=== PATIENT | male | born 1945 | race Caucasian/White ===

== ENCOUNTER 2017-08-26 09:14 | Day surgery (SDC) | payer MEDICARE, OTHER ==
[~2017-08-26 09:14] MED LIST: ALPRAZolam TAB* 0.25 MG PO PRN; Acetaminophen TAB* 325 MG PO PRN; Buffered Lidocaine 0.9% SYRIN* 5 ML/SYR SYRINGE INTRADERM ONE
[2017-08-26] MEDS ORDERED: Midazolam* 1 MG/ML 5 ML VIAL (5 MG) ONE (10:28)
[2017-08-26 11:59] VITALS: BP 131/76
[2017-08-26] MEDS ORDERED: Ketorolac 0.5% OPHTH (NF) 0.5 % 5 ML BTL ONE (12:22)
[2017-08-26] MEDS ORDERED: acetaZOLAMIDE TAB* 250 MG ONE (12:22)
[2017-08-26] MEDS ORDERED: Lidocaine 1%* 5 ML VIAL ONE (12:22)
[2017-08-26] MEDS ORDERED: Proparacaine 0.5% OPHTH.SOL* 15 ML BTL ONE (12:22)
[2017-08-26] MEDS ORDERED: Neomycin/Polymy/Dex OPTH.SUSP* MAXITROL 0.1% 5 ML ONE (12:22)
[2017-08-26] MEDS ORDERED: Lidocaine 2% EPI 1:200000 MPF*10-20 ML VIAL ONE (12:22)
[2017-08-26] MEDS ORDERED: Povidone Iodine 5% OPTH* 30 ML BTL ONE (12:22)
[2017-08-26] MEDS ORDERED: Cyclopentolate 1% OPTH.SOL* 2 ML BTL ONE (12:22)
[2017-08-26] MEDS ORDERED: Phenylephrine 2.5% OPTH.SOL* 2 ML BTL ONE (12:22)
--- NOTE | 2017-08-27 01:19 | OP ---
DATE OF OPERATION: 08/26/17 - [facility] DATE OF : 41 SURGEON: Markus Yadav M.D. PREOPERATIVE DIAGNOSIS: Cataract, right eye. POSTOPERATIVE DIAGNOSIS: Cataract, right eye. OPERATIVE PROCEDURE: Extracapsular cataract extraction with intraocular lens implant right eye. DESCRIPTION OF PROCEDURE: The patient was brought to the operating room after being given 1/2% Alcaine with epinephrine drops in the preoperative area. The eye was prepped and draped in the usual sterile fashion. Sterile drape and eyelid speculum were placed. Again, topical 1/2% Alcaine with epinephrine was given. A paracentesis incision was made at the 9 o'clock position with the No.75 blade. Clear cornea incision 2.2 x 2.2-mm was created at the 12 o'clock position starting at the anterior limbus using the 2.2-mm keratome. The anterior chamber was irrigated with 0.4 mL of 1% non-preservative intracameral lidocaine and filled with DisCoVisc. A capsulorrhexis was completed using the cystotome and the Utrata forceps. Hydrodissection was performed with balanced salt solution. The lens nucleus was removed with the Phacoemulsification handpiece without incident. Cortex was removed with the irrigation-aspiration handpiece. The capsular bag was re-inflated using DisCoVisc and an [id number] implant was inserted with the shooter. The irrigation-aspiration handpiece was used to remove all residual DisCoVisc. The eye was refilled with balanced salt solution and the wound checked and found to be watertight. Topical Maxitrol drops were given. [id number]/[facility] #: [id number] [facility]
== END 2017-08-26 11:50 | disposition home or self-care (01) ==
LOC: OREAST 09:14
PROVIDERS: ATTEND Specialist
DX: H25.811 Combined forms of age-related cataract, right eye (principal); H34.8312 Tributary (branch) retinal vein occlusion, right eye, stable; Z87.891 Personal history of nicotine dependence; I48.91 Unspecified atrial fibrillation; I10 Essential (primary) hypertension; F41.9 Anxiety disorder, unspecified; E78.5 Hyperlipidemia, unspecified; Z79.01 Long term (current) use of anticoagulants
CPT/HCPCS: A9270-GY; J2250; V2632

== ENCOUNTER 2017-09-02 10:57 | Day surgery (SDC) | payer MEDICARE, OTHER ==
[~2017-09-02 10:57] MED LIST changes: -ALPRAZolam TAB* 0.25 MG PO PRN
[2017-09-02] MEDS ORDERED: Midazolam* 1 MG/ML 5 ML VIAL (5 MG) ONE (13:42)
[2017-09-02 14:36] VITALS: BP 155/80
[2017-09-02] MEDS ORDERED: Povidone Iodine 5% OPTH* 30 ML BTL ONE (15:11)
[2017-09-02] MEDS ORDERED: Ketorolac 0.5% OPHTH (NF) 0.5 % 5 ML BTL ONE (15:11)
[2017-09-02] MEDS ORDERED: acetaZOLAMIDE TAB* 250 MG ONE (15:11)
[2017-09-02] MEDS ORDERED: Lidocaine 1%* 5 ML VIAL ONE (15:11)
[2017-09-02] MEDS ORDERED: Cyclopentolate 1% OPTH.SOL* 2 ML BTL ONE (15:11)
[2017-09-02] MEDS ORDERED: Phenylephrine OPHTH SOL 2.5%* 2 ML ONE (15:11)
[2017-09-02] MEDS ORDERED: Neomycin/Polymy/Dex OPTH.SUSP* MAXITROL 0.1% 5 ML ONE (15:11)
[2017-09-02] MEDS ORDERED: Lidocaine 2% EPI 1:200000 MPF*10-20 ML VIAL ONE (15:11)
[2017-09-02] MEDS ORDERED: Proparacaine 0.5% OPHTH.SOL* 15 ML BTL ONE (15:12)
--- NOTE | 2017-09-03 06:31 | OP ---
DATE OF OPERATION: 09/02/17 - [facility] DATE OF : 41 SURGEON: Markus Yadav M.D. PREOPERATIVE DIAGNOSIS: Cataract, left. POSTOPERATIVE DIAGNOSIS: Cataract, left. OPERATIVE PROCEDURE: Extracapsular cataract extraction with intraocular lens implant left eye. DESCRIPTION OF PROCEDURE: The patient was brought to the operating room after being given 1/2% Alcaine with epinephrine drops in the preoperative area. The eye was prepped and draped in the usual sterile fashion. Sterile drape and eyelid speculum were placed. Again, topical 1/2% Alcaine with epinephrine was given. A paracentesis incision was made at the 3 o'clock position with the No.75 blade. Clear cornea incision 2.2 x 2.2-mm was created at the 6 o'clock position starting at the anterior limbus using the 2.2-mm keratome. The anterior chamber was irrigated with 0.4 mL of 1% non-preservative intracameral lidocaine and filled with DisCoVisc. A capsulorrhexis was completed using the cystotome and the Utrata forceps. Hydrodissection was performed with balanced salt solution. The lens nucleus was removed with the Phacoemulsification handpiece without incident. Cortex was removed with the irrigation-aspiration handpiece. The capsular bag was re-inflated using DisCoVisc and an [id number] implant was inserted with the shooter. The irrigation-aspiration handpiece was used to remove all residual DisCoVisc. The eye was refilled with balanced salt solution and the wound checked and found to be watertight. Topical Maxitrol drops were given. [id number]/[facility] #: [id number] [facility]
== END 2018-05-06 16:28 | disposition home or self-care (01) ==
LOC: OREAST 10:57
PROVIDERS: ATTEND Specialist
DX: H25.812 Combined forms of age-related cataract, left eye (principal); H34.8312 Tributary (branch) retinal vein occlusion, right eye, stable; I10 Essential (primary) hypertension; E78.00 Pure hypercholesterolemia, unspecified; K21.9 Gastro-esophageal reflux disease without esophagitis; I48.91 Unspecified atrial fibrillation; Z79.01 Long term (current) use of anticoagulants; Z87.891 Personal history of nicotine dependence; F41.9 Anxiety disorder, unspecified; Z79.899 Other long term (current) drug therapy
CPT/HCPCS: A9270-GY; J2250; V2632

== ENCOUNTER 2019-04-12 10:50 | Day surgery (SDC) | payer MEDICARE, OTHER ==
--- NOTE | 2019-04-06 09:27 | HP ---
PREOPERATIVE HISTORY AND PHYSICAL: DATE OF SURGERY/ADMISSION: 04/12/19 [facility] ATTENDING SURGEON: Latoya Wayne MD * (DICTATED BY HUSSEIN COLLAZO) PROCEDURE: Left wrist carpal tunnel release. DATE OF OFFICE VISIT/ENCOUNTER: 03/23/19 HISTORY OF PRESENT ILLNESS: This is a 73-year-old male who has had symptoms of numbness and tingling and pain in his left hand since January 2018. He denies any acute injury, but symptoms started after he had been doing some shoveling and using a snowblower. He has symptoms in his thumb, index and middle fingers and pain in his arm. He received a cortisone injection into the carpal tunnel, and for a time, that worked quite well. Unfortunately, the symptoms returned. He has now decided to pursue more definitive treatment in the form of a carpal tunnel release on the left. The patient has atrial fibrillation. He is on Xarelto. He will continue on that during the perioperative period. PAST MEDICAL HISTORY: 1. Atrial fibrillation. 2. Hypertension. 3. Hyperlipidemia. 4. GERD. 5. Anxiety/depression. PAST SURGICAL HISTORY: 1. Bilateral cataract removal. 2. Low back surgery. 3. Right shoulder rotator cuff repair. CURRENT MEDICATIONS: 1. Alprazolam 0.25 mg daily. 2. Amlodipine besylate 2.5 mg daily. 3. Diovan 160 mg daily. 4. Lipitor 40 mg daily. 5. Multivitamin daily. 6. Paxil 20 mg daily. 7. Potassium chloride 1 tab daily. 8. Prilosec 40 mg daily. 9. Toprol XL 100 mg daily. 10. Xarelto 20 mg daily. ALLERGIES: CODEINE causes nausea. FAMILY MEDICAL HISTORY: Noncontributory. SOCIAL HISTORY: The patient is retired. He is a former smoker. He quit at age 24. He denies recreational drug use. He drinks alcohol on occasion. REVIEW OF SYSTEMS: Negative for general, cephalic, cardiovascular, respiratory , GI/, other musculoskeletal, integumentary, endocrine, neurologic and hematologic symptoms, infectious disease, negative for MRSA, hepatitis C, HIV. PHYSICAL EXAMINATION GENERAL: Well-developed, well-nourished, 73-year-old male in on acute distress. VITAL SIGNS: Height 5 feet 6 inches, weight 160 pounds, pulse rate 76, blood pressure 144/88. HEENT: Normocephalic, atraumatic. Pupils are equal, reactive to light and accommodation. Extraocular movements are intact. NECK: Supple. No palpable lymph nodes. Throat is clear. PULMONARY: Lungs are clear to auscultation bilaterally. No wheezes, rales or rhonchi. CARDIOVASCULAR: Irregular rate and rhythm. S1, S2. No murmurs, rubs or gallops. ABDOMEN: Positive bowel sounds, soft, nontender. MUSCULOSKELETAL: On exam of his left hand and wrist, there is no visible muscle wasting, but he has weakness with thumb abduction. Positive Tinel's sign at the median nerve, negative at the elbow; also positive median nerve compression test and Phalen's test. Sensation is intact to light touch throughout the hand. NEUROLOGIC: Alert and oriented x3. Cranial nerves II through XII are intact. IMPRESSION: Left carpal tunnel syndrome. PLAN: The patient is scheduled to undergo left wrist carpal tunnel release with Dr. Wayne on 04/12/19. He will return to the office 10 days postop for followup and suture removal. A prescription for [place] was e-scribed to the patient's pharmacy for postoperative pain management. HUSSEIN COLLAZO [id number]/[facility] #: [id number] JUAN PABLO
[~2019-04-12 10:50] MED LIST changes: -Buffered Lidocaine 0.9% SYRIN* 5 ML/SYR SYRINGE INTRADERM ONE; +Buffered Lidocaine 1% SYRIN* 1 ML/SYRINGE INTRADERM ONE; +Lactated Ringers 1000 ML Bag* 1,000 ML IV SCH
[2019-04-12] MEDS ORDERED: Propofol* 10 MG/ML 20 ML BTL ONE (12:13)
[2019-04-12] MEDS ORDERED: fentaNYL* 50 MCG/ML 2 ML VIAL (100 MCG VIAL) ONE (12:13)
[2019-04-12] MEDS ORDERED: Lidocaine 2% PF * 5 ML VIAL ONE (12:14)
[2019-04-12] MEDS ORDERED: Lidocaine 1% INJ* 10 MG/ML 30 ML SDV ONE (12:26)
[2019-04-12] MEDS ORDERED: Midazolam* 1 MG/ML 2 ML VIAL (2 MG) ONE (13:12)
[2019-04-12 13:44] VITALS: BP 123/62
--- NOTE | 2019-04-12 22:37 | OP ---
DATE OF OPERATION: 04/12/19 [facility] DATE OF : 41 SURGEON: Latoya Wayne MD KEYBOARDING TEACHER: HUSSEIN Hooper ANESTHESIA: Local MAC. PRE-OP DIAGNOSIS: Left carpal tunnel syndrome. POST-OP DIAGNOSIS: Left carpal tunnel syndrome. OPERATIVE PROCEDURE: Left carpal tunnel release. ESTIMATED BLOOD LOSS: Zero. TOURNIQUET TIME: Approximately 10 minutes. INDICATIONS FOR PROCEDURE: Robel is a 73-year-old man who has numbness and tingling in the median nerve distribution of his left hand. He presents for left carpal tunnel release. DESCRIPTION OF PROCEDURE: The patient was brought to the operating room, was given a sedation anesthetic and a local infiltration of 10 cc of 1% plain lidocaine in the palm of his left hand. The skin of his left hand and forearm was prepped and draped in the usual sterile fashion. The hand and forearm were exsanguinated and the tourniquet elevated to 250 mmHg. A longitudinal incision was made in the palm in line with the ring finger and we dissected through the subcutaneous tissue down to the transverse carpal ligament. The ligament was divided sharply with a knife and then more proximally with the scissors. The nerve was dissected free from the surrounding tissue and there was an area of moderate compression at the mid portion of the ligament. The wound was irrigated and the skin edges reapproximated with 4- 0 nylon suture. The wound was dressed with Xeroform, 4x4, Webril, and an Gold wrap. The patient tolerated the procedure well and was brought to the recovery room in good condition. [id number]/[facility] #: [id number] [facility]
== END 2019-04-12 13:37 | disposition home or self-care (01) ==
LOC: OREAST 10:50
PROVIDERS: ATTEND Orthopaedic Surgery
DX: G56.02 Carpal tunnel syndrome, left upper limb (principal); I48.91 Unspecified atrial fibrillation; Z79.01 Long term (current) use of anticoagulants; I10 Essential (primary) hypertension; E78.5 Hyperlipidemia, unspecified; K21.9 Gastro-esophageal reflux disease without esophagitis; F41.8 Other specified anxiety disorders; Z87.891 Personal history of nicotine dependence
CPT/HCPCS: J2250; J2704; J3010